=== PATIENT | male | born 1980 | race Caucasian/White ===

== ENCOUNTER 2016-07-31 21:33 | Emergency (ER) | payer MEDICARE, OTHER ==
--- NOTE | 2016-07-31 21:51 | ER Document Report ---
ED Medical Screen (RME) - General Stated Complaint: CHEST PAIN Time seen by provider: 21:44 Mode of Arrival: Medic Information source: Patient, Emergency Med Personnel Notes: Patient states sudden onset of left-sided chest pain tonight. Also had shortness of breath. Denies radiation of pain. No nausea or vomiting. Similar episode back in January, was seen here as well. Chest pain is down to a level II out of 5, patient was given nitroglycerin by EMS and aspirin as well. Patient has a history of diabetes, also has a spinal cord stimulator in place, and has had hypertension in the past but is currently not taking any medications. I have greeted and performed a rapid initial assessment of this patient. A comprehensive ED assessment and evaluation of the patient, analysis of test results and completion of the medical decision making process will be conducted by additional ED providers. TRAVEL OUTSIDE OF THE [place] IN LAST 30 DAYS: No - Related Data Allergies/Adverse Reactions: No Known Allergies Allergy (Unverified 08/25/15 09:09) Past Medical History - Past Medical History Cardiac Medical History: Denies: Hx Coronary Artery Disease, Hx Heart Attack, Hx Hypertension Pulmonary Medical History: Denies: Hx Asthma, Hx Bronchitis, Hx COPD, Hx Pneumonia Neurological Medical History: Denies: Hx Cerebrovascular Accident, Hx Seizures Musculoskeltal Medical History: Denies Hx Arthritis - Immunizations Hx Diphtheria, Pertussis, Tetanus Vaccination: Yes Physical Exam - Respiratory Respiratory status: No respiratory distress Breath sounds: Normal - Cardiovascular Rhythm: Regular Heart sounds: Normal auscultation
[2016-07-31 22:26] LABS: ABSOLUTE EOSINOPHILS # (AUTO) 0.3 10^3/uL (0.0-0.6); ABSOLUTE LYMPHOCYTES (AUTO) 3.3 10^3/uL (0.5-4.7); ABSOLUTE NEUT (AUTO) 7.3 10^3/uL (1.7-8.2); BASOPHILS % (AUTO) 0.4 % (0-2); EOSINOPHILS % (AUTO) 2.6 % (0-6); HEMATOCRIT 42.3 % (37.9-51.0); HEMOGLOBIN 14.4 g/dL (13.5-17.0); HGB HCT DIFFERENCE 0.9; LYMPHOCYTES % (AUTO) 27.8 % (13-45); MEAN CORPUSCULAR HEMOGLOBIN 28.9 pg (27.0-33.4); MEAN CORPUSCULAR HGB CONC 34.2 g/dL (32.0-36.0); MEAN CORPUSCULAR VOLUME 84 fl (80-97); MONOCYTES % (AUTO) 8.1 % (3-13); SEGMENTED NEUTROPHILS % (AUTO) 61.1 % (42-78); WHITE BLOOD COUNT 11.9 10^3/uL (4.0-10.5)
[2016-07-31 22:35] LABS: ALANINE AMINOTRANSFERASE 56 U/L (21-72); ALBUMIN 4.8 g/dL (3.5-5.0); ALKALINE PHOSPHATASE 73 U/L (38-126); ANION GAP 14 (5-19); ASPARTATE AMINO TRANSFERASE 40 U/L (17-59); BILIRUBIN,TOTAL 0.9 mg/dL (0.2-1.3); BLOOD UREA NITROGEN 17 mg/dL (7-20); CALCIUM 10.4 mg/dL (8.4-10.2); CARBON DIOXIDE 30 mmol/L (22-30); CHLORIDE 101 mmol/L (98-107); CREATINE KINASE 588 U/L (55-170); GLUCOSE 200 mg/dL (75-110); POTASSIUM 4.6 mmol/L (3.6-5.0); SODIUM 144.9 mmol/L (137-145); TOTAL PROTEIN 7.9 g/dL (6.3-8.2)
[2016-07-31 22:46] LABS: CREATINE KINASE MB 3.34 ng/mL (<4.55)
[2016-07-31 22:47] LABS: TROPONIN I < 0.012 ng/mL
--- NOTE | 2016-08-01 00:56 | ER Document Report ---
ED Cardiac - General Chief Complaint: Chest Pain > 30 Stated Complaint: CHEST PAIN Time seen by provider: 00:55 Mode of Arrival: Medic Information source: Patient TRAVEL OUTSIDE OF THE [place] IN LAST 30 DAYS: No - HPI Patient complains to provider of: Chest pain Was the onset of pain: Sudden Is the pain a: New problem Chest pain location: Substernal Quality of pain: Sharp, Stabbing Severity now: Mild Severity at worst: Moderate Pain level currently: 4 Chest pain precipitating factors: At Rest Cardiac risk factors: Diabetes Positive cardiac history: No Associated symptoms: Palpitations Exacerbated by: Denies Relieved by: Nothing Similar symptoms previously: Yes Recently seen / treated by doctor: Yes Notes: Patient is a 35-year-old male with a history of diabetes as well as chronic back problems with a spinal stimulator that was recently replaced in July, he presents to the emergency room complaining of sharp stabbing chest pain that started just prior to arrival, reports shortness of breath associated with it but no diaphoresis, no aggravating or alleviating symptoms, he reports a history of similar symptoms in September of last year but reports a normal cardiac workup at that time - Related Data Allergies/Adverse Reactions: No Known Allergies Allergy (Unverified 08/25/15 09:09) Past Medical History - General Information source: Patient, Emergency Med Personnel - Social History Smoking Status: Never Smoker Chew tobacco use (# tins/day): No Frequency of alcohol use: Rare Drug Abuse: None Family History: Reviewed & Not Pertinent Patient has suicidal ideation: No Patient has homicidal ideation: No - Past Medical History Cardiac Medical History: Denies: Hx Coronary Artery Disease, Hx Heart Attack, Hx Hypertension Pulmonary Medical History: Denies: Hx Asthma, Hx Bronchitis, Hx COPD, Hx Pneumonia Neurological Medical History: Denies: Hx Cerebrovascular Accident, Hx Seizures Renal/ Medical History: Denies: Hx Peritoneal Dialysis Musculoskeltal Medical History: Denies Hx Arthritis - Immunizations Hx Diphtheria, Pertussis, Tetanus Vaccination: Yes Review of Systems - Review of Systems Constitutional: No symptoms reported EENT: No symptoms reported Cardiovascular: Chest pain, Palpitations Respiratory: Short of breath Gastrointestinal: No symptoms reported Genitourinary: No symptoms reported Male Genitourinary: No symptoms reported Musculoskeletal: No symptoms reported Skin: No symptoms reported Hematologic/Lymphatic: No symptoms reported Neurological/Psychological: No symptoms reported -: Yes All other systems reviewed and negative Physical Exam - Vital signs Vitals: Temp Pulse Resp BP Pulse Ox 97.6 F 109 H 20 123/79 93 07/31/16 21:47 07/31/16 21:47 07/31/16 21:47 07/31/16 21:47 07/31/16 21:47 Interpretation: Normal - General General appearance: Appears well, Alert - HEENT Head: Normocephalic, Atraumatic Eyes: Normal Pupils: PERRL - Respiratory Respiratory status: No respiratory distress Chest status: Nontender Breath sounds: Normal Chest palpation: Normal - Cardiovascular Rhythm: Regular Heart sounds: Normal auscultation Murmur: No - Abdominal Inspection: Normal Distension: No distension Bowel sounds: Normal Tenderness: Nontender Organomegaly: No organomegaly - Back Back: Normal, Nontender - Extremities General upper extremity: Normal inspection, Nontender, Normal color, Normal ROM , Normal temperature General lower extremity: Normal inspection, Nontender, Normal color, Normal ROM , Normal temperature, Normal weight bearing. No: Magy's sign - Neurological Neuro grossly intact: Yes Cognition: Normal Orientation: AAOx4 [place] Coma Scale Eye Opening: Spontaneous [place] Coma Scale Verbal: Oriented [place] Coma Scale Motor: Obeys Commands [place] Coma Scale Total: 15 Speech: Normal Motor strength normal: LUE, RUE, LLE, RLE Sensory: Normal - Psychological Associated symptoms: Normal affect, Normal mood - Skin Skin Temperature: Warm Skin Moisture: Dry Skin Color: Normal Course - Re-evaluation Re-evalutation: 08/01/16 00:58 Patient with unremarkable evaluation in the emergency room, CK was slightly elevated, otherwise EKG, and chest x-ray are unremarkable, vital signs improved while in the emergency room and symptoms improved as well, more consistent with musculoskeletal pain, patient was provided with information for follow-up with cardiology and advised to return if symptoms worsen, patient and at bedside acknowledge understanding and agreement with this - Vital Signs Vital signs: Temp Pulse Resp BP Pulse Ox 97.6 F 109 H 20 123/79 93 07/31/16 21:47 07/31/16 21:47 07/31/16 21:47 07/31/16 21:47 07/31/16 21:47 - Laboratory Result Diagrams: 07/31/16 22:10 07/31/16 22:10 Laboratory results interpreted by me: 07/31/16 07/31/16 22:10 22:10 WBC 11.9 H Glucose 200 H Calcium 10.4 H Creatine Kinase 588 H - Diagnostic Test Radiology reviewed: Image reviewed, Reports reviewed - EKG Interpretation by Me EKG shows normal: Sinus rhythm Rate: Tachycardia Discharge - Discharge Clinical Impression: Chest pain Qualifiers: Chest pain type: unspecified Qualified Code(s): R07.9 - Chest pain, unspecified Condition: Stable Disposition: HOME, SELF-CARE Instructions: Chest Pain of Unclear Cause ([facility]) Additional Instructions: Follow up with your primary care provider in one to 2 days. Return to the emergency room immediately if symptoms worsen or any additional concerns. Forms: Return to Work Referrals: TATY MUNOZ MD [ACTIVE STAFF] - Follow up as needed SUSI MACHADO MD [ACTIVE STAFF] - Follow up as needed
[2016-08-01 01:05] VITALS: BP 132/93
--- NOTE | 2016-08-01 08:22 | EKG REPORT ---
SEVERITY:- ABNORMAL ECG - SINUS TACHYCARDIA LEFT POSTERIOR FASCICULAR BLOCK : Confirmed by: Galen Rice MD 01-Aug-2016 08:21:42
== END 2016-08-01 01:09 | disposition home or self-care (01) ==
LOC: ER 21:33
DX: R07.89 Other chest pain (principal); R06.02 Shortness of breath; R00.2 Palpitations; R00.0 Tachycardia, unspecified; E11.9 Type 2 diabetes mellitus without complications; Z96.89 Presence of other specified functional implants
CPT/HCPCS: 36415; 71010; 80053; 82550; 82553; 84484; 85025; 93005; 93010; 99285

== ENCOUNTER 2017-07-11 07:53 | Day surgery (SDC) | payer MEDICARE, OTHER ==
[2017-07-11 08:50] LABS: INTERNATIONAL RATION (INR) 0.79; PROTHROMBIN TIME 11.6 SEC (11.4-15.4)
[2017-07-11 08:51] LABS: PARTIAL THROMBOPLASTIN TIME 33.4 SEC (23.5-35.8)
[2017-07-11] MEDS ORDERED: LIDOCAINE 1% INJ-PF (10 MG/ML) 30 ML SDV ONE (10:12)
[2017-07-11] MEDS ORDERED: LIDOCAINE 0.5% INJ-PF (5 MG/ML) 50 ML SDV ONE (10:13)
[2017-07-11] MEDS ORDERED: METFORMIN HCL 500 MG TABLET PO PRN (12:45)
--- NOTE | 2017-07-11 12:50 | RADIOLOGY REPORT (SQ) ---
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 Total of 28 digital images obtained during myelogram, followed by CT of the thoracic and cervical spi ne. Total CT radiation dose 28.5 mGy. Myelography was discussed with the patient, and he agreed to the procedure. Under fluoroscopic localization, the left paracentral L4-5 level was localized. Skin marked. Timeout performed. After sterile skin prep and 4.5 mL of 1% local lidocaine for skin and deep tissue anesthesia, a 22 ga uge spinal needle was used to access the lumbar subarachnoid space via right paracentral approach at the left paracentral L4-5 level. Prompt return of clear cerebrospinal fluid. At this point, 10mL of30 0 contrast was injected into the thecal sac without complication. Needle withdrawn, Band-Aid applied. After performing cervical myelogram, axial images were acquired through the cervical spine without in travenous contrast. Images reviewed with lung, soft tissue and bone windows. Reconstructed coronal and sagittal MPR images reviewed. Images stored on PACS. All CT scanners at this facility use dose modulation, iterative reconstruction, and/or weight based d osing when appropriate to reduce radiation dose to as low as reasonably achievable (ALARA). [facility]: Dose Right [facility]: CareDose [facility]: Dose Right [facility]: Teradose 4D [facility]: [employer] RADIATION DOSE: CT Rad equipment meets quality standard of care and radiation dose reduction techniq ues were employed. CTDIvol: 28.5 mGy. DLP: 1442 mGy-cm. mGy. LIMITATIONS: None. FINDINGS: Postmyelogram fluoroscopic and cross-table lateral imaging: During injection of contrast into the lumbar spinal canal, no significant central or foraminal encroa chment was identified from L3 through S1. There are neurostimulator electrodes which enter the thora cic canal along the right interlaminar space at T12-L1. Thoracic myelogram demonstrates no significant central canal impingement. Dorsal column electrodes a re seen from T8 through T11. Cervical myelographic images demonstrate no truncation of cervical nerve roots. No significant ventr al epidural defect in the cervical spine. No central canal stenosis. Postmyelogram cervical spine CT: ALIGNMENT: Anatomic. MINERALIZATION: Normal. VERTEBRAL BODIES: No fractures or dislocation. DISCS: C1-C2: No significant spinal stenosis or exit foraminal stenosis. C2-C3: No significant spinal stenosis or exit foraminal stenosis. C3-C4: No significant spinal stenosis or exit foraminal stenosis. C4-C5: No significant spinal stenosis or exit foraminal stenosis. C5-C6: No significant spinal stenosis or exit foraminal stenosis. C6-C7: No significant spinal stenosis or exit foraminal stenosis. C7-T1: No significant spinal stenosis or exit foraminal stenosis. FACETS, LATERAL MASSES, POSTERIOR ELEMENTS: No fractures. No dislocation. No acute findings. VISUALIZED RIBS: No fractures. LUNG APICES AND SOFT TISSUES: No significant or acute findings. OTHER: No other significant finding. Postmyelogram thoracic spine CT: ALIGNMENT: Anatomic. MINERALIZATION: Normal. VERTEBRAL BODIES: No fractures or dislocation. DISCS: T2-3: Small central posterior disc protrusion partially effaces the ventral thecal sac and abuts the ventral cord without cord flattening. Mild bilateral facet arthropathy. No significant central or foraminal encroachment. T3-4: Tiny central posterior disc bulge without significant central or foraminal encroachment. T4-5: Tiny central posterior disc bulge without significant central or foraminal encroachment T5-6: Tiny central posterior disc bulge without significant central or foraminal encroachment. FACETS, LATERAL MASSES, POSTERIOR ELEMENTS: No fractures. No dislocation. No acute findings. VISUALIZED RIBS: No fractures. LUNGS AND SOFT TISSUES in the field of view: No significant or acute findings. OTHER: Again, dorsal column stimulator is present with electrodes from T8 through T11. IMPRESSION: Unremarkable cervical myelogram Small upper thoracic central posterior disc bulges without significant central or foraminal encroachm ent. COMMENT: Patient medication list reviewed: Yes- Quality ID# [id number]:Eligible professional attests to doc umenting in the medical record they obtained, updated, or reviewed the patient's current medications. TECHNICAL DOCUMENTATION: JOB ID: [id number] Quality ID # [id number]: Final reports with documentation of one or more dose reduction techniques (e.g., Au tomated exposure control, adjustment of the mA and/or kV according to patient size, use of iterative reconstruction technique) 2010 [employer]- All Rights Reserved
[2017-07-11 15:38] VITALS: BP 125/88
== END 2017-07-11 13:25 | disposition home or self-care (01) ==
LOC: RAD 07:53
PROVIDERS: ATTEND Pain Medicine Pain Medicine
PROC: B01BYZZ Fluoroscopy of Spinal Cord using Other Contrast (ICD-10-PCS; principal; 2017-07-11)
DX: M54.6 Pain in thoracic spine (principal); Z79.899 Other long term (current) drug therapy; Z79.01 Long term (current) use of anticoagulants
CPT/HCPCS: 36415; 82962; 82947; 85610; 85730; 72270; 72126; 72129; J3490

== ENCOUNTER 2017-07-12 05:31 | Emergency (ER) | payer MEDICARE, OTHER ==
[2017-07-12] MEDS ORDERED: FENTANYL CITRATE INJ/PF 100 MCG/2 ML AMPUL IV ONE (08:29)
--- NOTE | 2017-07-12 08:45 | ER Document Report ---
ED General - General Chief Complaint: Back Pain Stated Complaint: BACK AND NECK PAIN Time Seen by Provider: 07/12/17 08:11 Notes: 36-year-old male with extensive spine history 3 lumbar spinal surgeries spinal cord stimulator resents with low back pain. He normally has pain but yesterday he had a myelogram done to look at his cervical spine. He cannot have MRIs. He complains of pain in his low back worse than usual with bilateral radiation to the buttocks worse with movement as well as radiating up to the neck. No fever or chills. No headache. TRAVEL OUTSIDE OF THE [place] IN LAST 30 DAYS: No - Related Data Allergies/Adverse Reactions: No Known Allergies Allergy (Unverified 08/25/15 09:09) Past Medical History - Social History Smoking Status: Never Smoker Frequency of alcohol use: Occasional Drug Abuse: None Family History: Reviewed & Not Pertinent Patient has suicidal ideation: No Patient has homicidal ideation: No - Past Medical History Cardiac Medical History: Denies: Hx Coronary Artery Disease, Hx Heart Attack, Hx Hypertension Pulmonary Medical History: Denies: Hx Asthma, Hx Bronchitis, Hx COPD, Hx Pneumonia Neurological Medical History: Denies: Hx Cerebrovascular Accident, Hx Seizures Renal/ Medical History: Denies: Hx Peritoneal Dialysis Musculoskeltal Medical History: Denies Hx Arthritis - Immunizations Hx Diphtheria, Pertussis, Tetanus Vaccination: Yes Review of Systems - Review of Systems Notes: REVIEW OF SYSTEMS GEN: Denies fever, chills, weight loss ENT: Denies sore throat, nasal discharge, ear pain EYES: Denies blurry vision, eye pain, discharge CV: Denies chest pain, palpitations, edema RESP: Denies cough, shortness of breath, wheezing GI: Denies abdominal pain, nausea, vomiting, diarrhea MSK: Back pain radiating to buttocks SKIN: Denies rash, skin lesions LYMPH: Denies swollen glands/lymph nodes NEURO: Denies headache, denies new neurologic symptoms in the lower extremities PSYCH: Denies depression, suicidal or homicidal ideation PHYSICAL EXAMINATION General: No acute distress, well-nourished Head: Atraumatic, normocephalic ENT: Mouth normal, oropharynx moist, no exudates or tonsillar enlargement Eyes: Conjunctiva normal, pupils equal, lids normal Neck: No JVD, supple, no guarding. Some pain on neck flexion. CVS: Normal rate, regular rhythm, no murmurs Resp: No resp distress, equal and normal breath sounds bilaterally GI: Nondistended, soft, no tenderness to palpation, no rebound or guarding Ext: No deformities, no edema, normal range of motion in upper and lower ext Back: No CVA. Minimal midline lumbar tenderness around the area of old midline surgical scars and a Band-Aid from myelogram yesterday but no skin changes or swelling or fluctuance. Skin: No rash, warm Lymphatic: No lymphadeopathy noted Neuro: Awake, alert. Face symmetric. GCS 15. Physical Exam - Vital signs Vitals: Temp Pulse Resp BP Pulse Ox 97.6 F 116 H 26 H 134/87 H 96 07/12/17 05:32 07/12/17 05:32 07/12/17 05:32 07/12/17 05:32 07/12/17 05:32 Course - Re-evaluation Re-evalutation: 07/12/17 08:44 Lumbar spine pain and neck pain worse with movement after a myelogram likely reflects meningeal irritation from the procedure itself. Normally I would do an MRI to rule out bleeding or abscess however the patient cannot have an MRI. I spoke with Dr. Dillon from radiology and we agreed together that labs including white count SR CRP and lumbar spine CT would be adequate to rule out these diagnoses. She states that this is a common occurrence after the procedure. Patient was given fentanyl for pain. No headache to suggest CSF leak. 07/12/17 09:43 ERP is mildly elevated. There is no white blood cell elevation. CT does not show evidence of abscess or collection. Taken together I think these results would indicate that his pain is more likely for meningeal irritation and infection. He will be discharged home to follow-up with his primary care. He was told that any further pain management would need to be done by his primary pain management physician. I have discussed with the patient there likely diagnosis, aftercare plan, follow-up plans and my usual and customary return precautions. They verbalized understanding of this. 07/12/17 09:45 - Vital Signs Vital signs: Temp Pulse Resp BP Pulse Ox 98.5 F 103 H 18 115/74 95 07/12/17 06:52 07/12/17 06:56 07/12/17 06:52 07/12/17 06:56 07/12/17 06:52 - Laboratory Result Diagrams: 07/12/17 08:40 Laboratory results interpreted by me: 07/12/17 08:40 C-Reactive Protein 12.0 H - Diagnostic Test Radiology reviewed: Image reviewed, Reports reviewed Discharge - Discharge Clinical Impression: Back pain Qualifiers: Back pain location: low back pain Chronicity: acute Back pain laterality: midline Sciatica presence: without sciatica Qualified Code(s): M54.5 - Low back pain Condition: Good Disposition: HOME, SELF-CARE Instructions: Ice Packs ([facility]), Oral Narcotic Medication ([facility]) Additional Instructions: Please speak to your primary doctor regarding prescriptions for pain management and further management of your postprocedural pain. Referrals: IRON BENNETT FNP [Primary Care Provider] - Follow up as needed
[2017-07-12 08:53] LABS: ABSOLUTE BASOPHILS # (AUTO) 0.1 10^3/uL (0.0-0.2); ABSOLUTE EOSINOPHILS # (AUTO) 0.2 10^3/uL (0.0-0.6); ABSOLUTE LYMPHOCYTES (AUTO) 2.5 10^3/uL (0.5-4.7); ABSOLUTE MONOCYTES (AUTO) 0.6 10^3/uL (0.1-1.4); ABSOLUTE NEUT (AUTO) 6.1 10^3/uL (1.7-8.2); BASOPHILS % (AUTO) 0.6 % (0-2); EOSINOPHILS % (AUTO) 2.1 % (0-6); HEMATOCRIT 44.1 % (37.9-51.0); HEMOGLOBIN 15.3 g/dL (13.5-17.0); LYMPHOCYTES % (AUTO) 26.1 % (13-45); MEAN CORPUSCULAR HEMOGLOBIN 28.9 pg (27.0-33.4); MEAN CORPUSCULAR HGB CONC 34.6 g/dL (32.0-36.0); MEAN CORPUSCULAR VOLUME 84 fl (80-97); MONOCYTES % (AUTO) 6.4 % (3-13); PLATELET COUNT 233 10^3/uL (150-450); RED BLOOD COUNT 5.28 10^6/uL (4.35-5.55); RED CELL DISTRIBUTION WIDTH 13.2 % (11.5-14.0); SEGMENTED NEUTROPHILS % (AUTO) 64.8 % (42-78); TOTAL CELLS COUNTED % (AUTO) 100 %; WHITE BLOOD COUNT 9.5 10^3/uL (4.0-10.5)
[2017-07-12 09:31] LABS: ERYTHROCYTE SEDIMENTATION RATE 15 mm/hr (0-15)
--- NOTE | 2017-07-12 09:34 | RADIOLOGY REPORT (SQ) ---
EXAM DESCRIPTION: CT LUMBAR SPINE WITHOUT COMPLETED DATE/TIME: 07/12/2017 9:15 am REASON FOR STUDY: recent LP now w/ incr pain (can't have MRI) COMPARISON: Cervical and thoracic myelogram yesterday TECHNIQUE: Axial images acquired through the lumbar spine without intravenous contrast. Images revi ewed with lung, soft tissue and bone windows. Reconstructed coronal and sagittal MPR images reviewed . All images stored on PACS. All CT scanners at this facility use dose modulation, iterative reconstruction, and/or weight based d osing when appropriate to reduce radiation dose to as low as reasonably achievable (ALARA). [facility]: Dose Right [facility]: CareDose [facility]: Dose Right [facility]: Teradose 4D [facility]: [employer] RADIATION DOSE: 37 mGy. LIMITATIONS: None. FINDINGS: SEGMENTATION: Normal. No transitional anatomy. ALIGNMENT: Normal. VERTEBRAL BODIES: No fractures. No dislocation. No acute findings. DISCS: No significant protrusions. There is residual contrast in the thecal sac from yesterday's mye logram. PEDICLES, TRANSVERSE PROCESSES: No fractures. No dislocation. No acute findings. FACETS, POSTERIOR ELEMENTS: No fractures. No dislocation. No spinal stenosis. HARDWARE: 8 dorsal column stimulator is present with electrodes entering the spinal canal along the r ight interlaminar space at T12-L1 VISUALIZED RIBS: No fractures. SOFT TISSUES: No significant or acute finding in adjacent soft tissues. OTHER: No other significant finding. IMPRESSION: Residual intrathecal contrast from yesterday's myelogram. No epidural abscess. No sign ificant lumbar disc protrusion/herniation. TECHNICAL DOCUMENTATION: JOB ID: [id number] Quality ID # [id number]: Final reports with documentation of one or more dose reduction techniques (e.g., Au tomated exposure control, adjustment of the mA and/or kV according to patient size, use of iterative reconstruction technique) 2010 [email or web address]- All Rights Reserved
[2017-07-12 10:30] VITALS: BP 96/61
== END 2017-07-12 10:30 | disposition home or self-care (01) ==
LOC: ER 05:31
DX: M54.5 Low back pain (principal); M54.2 Cervicalgia
CPT/HCPCS: 99284; 96374; 36415; 85025; 85652; 86140; 72131; J3010